=== PATIENT | male | born 1985 | race Caucasian/White ===

== ENCOUNTER 2016-05-25 10:08 | Emergency (ER) | payer MEDICAID, OTHER ==
[2016-05-25 10:40] VITALS: BP 139/79
--- NOTE | 2016-05-25 10:49 | UC ---
Knee Pain HPI - HPI Summary HPI Summary: patient fell going up stairs, landing on the front of both knees, he started to feel better but now left knee is still swollen, gets stiff at rest, and is very uncomfortable. - History of Current Complaint Chief Complaint: UCLowerExtremity Stated Complaint: LEFT KNEE PAIN-FALL 3WKS AGO Time Seen by Provider: 05/25/16 10:38 Hx Obtained From: Patient Onset/Duration: Sudden Onset, Lasting Weeks Severity Initially: Moderate Severity Currently: Moderate Aggravating Factor(s): Stairs, Nothing - prolonged rest Alleviating Factor(s): Nothing Associated Signs And Symptoms: Positive: Swelling, Weakness Able to Bear Weight: Yes - Risk Factors Septic Arthritis Risk Factor: Negative Gout Risk Factor: Negative - Allergies/Home Medications Allergies/Adverse Reactions: Allergies Allergy/AdvReac Type Severity Reaction Status Date / Time No Known Allergies Allergy Verified 05/25/16 10:19 Home Medications: Home Medications Acetaminophen TAB* [Tylenol TAB*] 325 mg PO Q4H PRN 05/25/16 [History Confirmed 05/25/16] Insulin GLARGINE(*) [Lantus(*)] 25 units SUBCUT Q24H 05/25/16 [History Confirmed 05/25/16] Insulin LISPRO* [HumaLOG*] 15 unit SUBCUT AC 05/25/16 [History Confirmed ] PMH/Surg Hx/FS Hx/Imm Hx Previously Healthy: Yes Endocrine History Of: Reports: Diabetes - Type 1 Cardiovascular History Of: Reports: Hypertension Denies: Pacemaker/ICD - Surgical History Surgical History: None - Family History Known Family History: Positive: Cardiac Disease - mother, Diabetes - DM - father , Other - pos Breast CA; lung CA - Social History Alcohol Use: Rare Substance Use Type: None Substance Use Comment - Amount & Last Used: Hx cocaine, mairjuana Smoking Status (MU): Current Every Day Smoker Type: Cigarettes Amount Used/How Often: 1 PPD Have You Smoked in the Last Year: Yes When Did the Patient Quit Smoking/Using Tobacco: Quit 07/04/15 Household Exposure Type: Cigarettes - Immunization History Most Recent Influenza Vaccination: Unk Most Recent Tetanus Shot: Unk Most Recent Pneumonia Vaccination: n/a Review of Systems Constitutional: Negative Skin: Negative Eyes: Negative ENT: Negative Respiratory: Negative Cardiovascular: Negative Gastrointestinal: Negative Genitourinary: Negative Motor: Negative Neurovascular: Negative Musculoskeletal: Arthralgia, Decreased ROM, Edema, Myalgia Neurological: Negative Psychological: Negative All Other Systems Reviewed And Are Negative: Yes Physical Exam Triage Information Reviewed: Yes Appearance: Well-Appearing, Well-Nourished, Pain Distress Vital Signs: Initial Vital Signs Temp 98.2 F 05/25/16 10:26 Pulse 82 05/25/16 10:26 Resp 18 05/25/16 10:26 BP 139/79 05/25/16 10:26 Pulse Ox 100 05/25/16 10:26 Vital Signs Reviewed: Yes Eye Exam: Normal Eyes: Positive: Conjunctiva Clear ENT Exam: Normal ENT: Positive: Normal ENT inspection, Hearing grossly normal, Pharynx normal, TMs normal Dental Exam: Normal Neck exam: Normal Neck: Positive: Supple, Nontender, No Lymphadenopathy Respiratory Exam: Normal Respiratory: Positive: Chest non-tender, Lungs clear, Normal breath sounds Cardiovascular Exam: Normal Cardiovascular: Positive: RRR, No Murmur, Pulses Normal Abdominal Exam: Normal Abdomen Description: Positive: Nontender, No Organomegaly, Soft Bowel Sounds: Positive: Present Musculoskeletal: Positive: Strength Limited @ - in flx and ext, RROM and AROM limited in extention due to pain at the top of the patella + Luh with medial compression, ROM Limited @ - left knee joint, Edema @ - left knee Neurological Exam: Normal Neurological: Positive: Alert Psychological Exam: Normal Skin Exam: Normal Knee Pain Course/Dx - Course Course Of Treatment: hx obtained, exam performed, meds reviewed, xray obtained, mild supra patellar joint effusion diomedes wrap applied. - Differential Dx/Diagnosis Differential Diagnosis/HQI/PQRI: Bursitis, Contusion, Dislocation, Internal Derangement Of Knee, Patellofemoral Syndrome, Sprain, Strain Provider Diagnoses: left knee effusion. patellar contusion Discharge - Discharge Plan Condition: Stable Disposition: HOME Patient Education Materials: Swollen Knee Joint (ED) Referrals: Tresa Martinez PA [Primary Care Provider] - Edelmira Mclain MD [Medical Doctor] - Additional Instructions: Continue to use the diomedes wrap to reduce swelling. elevate leg at rest. COntinue with tylenol for pain. ice massage to the area if pain persists. follow up with orthopedics if you are still having symptoms with conservative treatment.
--- NOTE | 2016-05-25 11:28 | RAD ---
Indication: LEFT knee pain around the patella post fall one month ago. Comparison: None. Technique: AP, tunnel, lateral, sunrise views LEFT knee. REPORT AND IMPRESSION: Probable small suprapatellar joint effusion. Mild anterior subcutaneous edema. Negative for fracture or malalignment. Preserved joint spaces.
== END 2016-05-25 11:48 | disposition home or self-care (01) ==
LOC: UCCORT 10:08
DX: S80.02XA Contusion of left knee, initial encounter (principal); W10.2XXA Fall (on)(from) incline, initial encounter; Y93.9 Activity, unspecified; Y92.9 Unspecified place or not applicable; M25.462 Effusion, left knee; E10.9 Type 1 diabetes mellitus without complications; Z79.4 Long term (current) use of insulin; F17.210 Nicotine dependence, cigarettes, uncomplicated
CPT/HCPCS: 99212; G0463